=== PATIENT | female | born 1945 | race Caucasian/White ===

== ENCOUNTER 2018-01-18 08:54 | Observation (INO) | END 2018-01-19 18:45 | disposition home or self-care (01) ==

== ENCOUNTER 2018-08-16 18:30 | Emergency (ER) | payer BC ==
[~2018-08-16] VITALS: Ht 154.9 cm; Wt 58.0 kg
[~2018-08-16 18:30] MED LIST: ADV25050 INHALATION; ASPI-831 PO; ATOR40TA68 PO; CARV6.2579 PO; CHOL100062 PO; FEXO180T13 PO; LEVO50TA7 PO; MONT10TA24 PO; OMEG-135 PO; SERT50TA6 PO; SOY1TABL2 PO
[2018-08-16 19:06] VITALS: Ht 154.9 cm; Wt 58.0 kg
--- NOTE | 2018-08-16 23:16 | ERD ---
ER Documentation Chief Complaint Chief Complaint DIZZINESS X 1 DAY HPI The patient is a 73-year-old female, presenting to the ER because of dizziness for 1 day, she feels as if the room is spinning, has similar symptoms previously, complains of cough and nasal congestion intermittently for 1 week, denies syncope, near syncope, seizure, facial pain, neck pain, chest pain, dyspnea, abdominal pain, vomiting with dysuria, diarrhea. She does not smoke, drinks socially, has increased stress in her life at this time. Medical history: Hypothyroidism, depression, asthma, anxiety, dyslipidemia, history of left bundle branch block, hypertension Past surgical history: Hysterectomy, appendectomy ROS All systems reviewed and are negative except as per history of present illness. Medications Home Meds Active Scripts Meclizine Hcl* (Antivert*) 12.5 Mg Tab, 25 MG PO Q6H PRN for DIZZINESS, #20 TAB Prov:LUCIO OLSEN MD 08/17/18 Aspirin (Aspirin) 81 Mg Chew, 81 MG PO DAILY, #30 TAB Prov:TRUMAN MELGOZA 01/19/18 Carvedilol* (Carvedilol*) 6.25 Mg Tablet, 6.25 MG PO BID, #60 TAB Prov:TRUMAN MELGOZA 01/19/18 Atorvastatin* (Atorvastatin*) 40 Mg Tablet, 40 MG PO QHS, #30 TAB Prov:TRUMAN MELGOZA 01/19/18 Reported Medications Soy Isofl/Blk Coh/Gr Tea/[place]erba ([employer] Caplet) 1 Each Tablet, 1 EACH PO DAILY, TAB 01/18/18 [place]-3 Fatty Acids/Fish Oil (Fish Oil 1,000 mg Capsule) 1 Each Capsule, 1 EACH PO DAILY, CAP 01/18/18 Cholecalciferol* (Vitamin D3*) 1,000 Unit Tablet, 1000 UNIT PO DAILY, TAB 01/18/18 Levothyroxine Sodium* (Levothyroxine Sodium*) 50 Mcg Tablet, 50 MCG PO BEFORE BREAKFAST, #30 TAB 01/18/18 Montelukast Sodium* (Montelukast Sodium*) 10 Mg Tablet, 10 MG PO QHS, #30 TAB 01/18/18 Sertraline Hcl* (Sertraline Hcl*) 50 Mg Tablet, 25 MG PO DAILY, #30 TAB 01/18/18 Fexofenadine Hcl* (Fexofenadine Hcl*) 180 Mg Tablet, 180 MG PO DAILY, #30 TAB 01/18/18 Salmeterol Xinaf/Fluticasone* (Advair*) 250-50 Diskus Inhaler, 1 INH INHALATION BID, #1 INHALER 01/18/18 Allergies Allergies: Coded Allergies: No Known Allergy (Unverified , 01/18/18) PMhx/Soc History of Surgery: Yes (hysterectomy, appendectomy, cataract surgery- left, left foot surgery) Anesthesia Reaction: No Hx Neurological Disorder: No Hx Respiratory Disorders: Yes (asthma) Hx Cardiac Disorders: Yes (HTN) Hx Psychiatric Problems: Yes (anxiety) Hx Miscellaneous Medical Probl: Yes (dyslipidemia) Hx Alcohol Use: Yes (occasional) Hx Substance Use: No Hx Tobacco Use: Yes Physical Exam Vitals Vital Signs Date Temp Pulse Resp B/P (MAP) Pulse Ox O2 O2 Flow FiO2 Time Delivery Rate 08/17/18 65 17 132/69 98 Room Air 00:46 (90) 08/16/18 98.7 71 18 154/75 97 19:06 (101) Physical Exam Const: No acute distress. Head: Atraumatic. Eyes: Normal Conjunctiva. ENT: Normal External Ears, Nose and Mouth. Bilateral tympanic membranes are within normal limit Neck: Full range of motion. No meningismus. Resp: Clear to auscultation bilaterally. Cardio: Regular rate and rhythm. Abd: Soft, non distended, normal bowel sounds, non tender. Skin: No petechiae or rashes. Back: No midline or flank tenderness. Ext: No cyanosis, or edema. Neur: Awake and alert. No focal deficit Psych: Anxious. Result Diagram: 08/16/18 2338 08/16/18 2338 Results 24 hrs Laboratory Tests Test 08/16/18 23:38 White Blood Count 6.2 10^3/ul Red Blood Count 4.16 10^6/ul Hemoglobin 13.1 g/dl Hematocrit 39.6 % Mean Corpuscular Volume 95.2 fl Mean Corpuscular Hemoglobin 31.5 pg Mean Corpuscular Hemoglobin Concent 33.1 g/dl Red Cell Distribution Width 13.0 % Platelet Count 246 10^3/UL Mean Platelet Volume 10.2 fl Immature Granulocytes % 0.300 % Neutrophils % 58.1 % Lymphocytes % 34.5 % Monocytes % 5.8 % Eosinophils % 1.0 % Basophils % 0.3 % Nucleated Red Blood Cells % 0.0 /100WBC Immature Granulocytes # 0.020 10^3/ul Neutrophils # 3.6 10^3/ul Lymphocytes # 2.2 10^3/ul Monocytes # 0.4 10^3/ul Eosinophils # 0.1 10^3/ul Basophils # 0.0 10^3/ul Nucleated Red Blood Cells # 0.0 10^3/ul Prothrombin Time 11.9 Sec Prothrombin Time Ratio 0.9 INR International Normalized Ratio 0.87 Activated Partial Thromboplast Time 29.1 Sec Sodium Level 138 mmol/L Potassium Level 3.9 mmol/L Chloride Level 100 mmol/L Carbon Dioxide Level 27 mmol/L Anion Gap 11 Blood Urea Nitrogen 19 mg/dl Creatinine 0.46 mg/dl Est Glomerular Filtrat Rate mL/min mL/min Glucose Level 109 mg/dl Calcium Level 10.0 mg/dl Troponin I < 0.012 ng/ml Current Medications Medications Dose Sig/[place] Start Time Status Last (Trade) Ordered Route PRN Stop Time Admin Dose Reason Admin Alprazolam 0.25 mg ONCE ONCE 08/16/18 DC 08/16/18 (Xanax) PO 23:30 23:34 08/16/18 23:31 Meclizine 25 mg ONCE ONCE 08/16/18 DC 08/16/18 HCl PO 23:30 23:35 (Antivert) 08/16/18 23:31 Procedures/MDM EKG: Read by emergency physician Rate/Rhythm: Normal Sinus Rhythm 74 beats/min QRS, ST, T-waves: No ST elevation, no T inversion, sinus arrhythmia, left bundle branch block Impression: Abnormal EKG [place] [id number] Radiology Main Line: [phone] DIAGNOSTIC IMAGING REPORT Patient: MAXIMO RILEY : 1945 Age: 73 Sex: F MR #: [id number] DOS: 08/16/182326 Ordering MD: LUCIO OLSEN MD Location: E/R Room/Bed: PROCEDURE: CT Brain without contrast. CLINICAL INDICATION: Headache. TECHNIQUE: A CT of the brain was performed on a [employer] CT scanner ut ilizing axial imaging from the skull base through the vertex without IV contrast. Multiplanar reformatted images were made. Images were reviewed on a PACS workstation. The CTDIvol is 38.3 mGy and the DLP is 634.2 mGycm. DICOM images are available. One or more of the following dose reduction techniques were utilized: 1.) Automated exposure control 2.) Adjustment of the mA +/- kV according to patient's size 3.) Use of iterative reconstruction technique. COMPARISON: None FINDINGS: No acute intracranial hemorrhage, extra-axial fluid collection, mass effect nor midline shift. No evidence of acute large territory transcortical infarct. Scattered and confluent hypoattenuating foci involving the periventricular, deep and subcortical white matter of bilateral cerebral hemispheres and the raquel, nonspecific but most likely reflecting chronic small vessel ischemia mildly advanced for age. Ventricles and sulci are age appropriate. Basal cisterns are patent and symmetric. Intracranial atherosclerotic calcifications. Left frontal sinus is underdeveloped. Visualized paranasal sinuses and mastoid air cells are essentially clear. Slight rightward nasal septal deviation. Partially visualized intraorbital soft tissues appear grossly normal. No depressed calvarial fracture. IMPRESSION: 1. No acute intracranial hemorrhage nor mass effect. 2. Mild presumed chronic small vessel ischemic changes. MRI brain has improved sensitivity for acute infarct or subtle lesion. RPTAT: HSAN Physician Rosaline Date Time Electronically viewed and signed by Physician Rosaline on 08/17/2018 00:51 xN/ CC: LUCIO OLSEN MD [id number] MEDICAL MAKING DECISION: The patient is a 73-year-old female, presenting with acute dizziness most likely due to acute anxiety and acute benign positional vertigo. She was treated with Xanax 0.25 mg p.o. for acute anxiety and Antivert 25 mg p.o. for acute dizziness with good response, is stable for outpatient follow-up The differential diagnoses considered include but are not limited to central causes such as cerebellar infarct, cerebellar hemorrhage, cerebellar tumor, acoustic neuroma, peripheral causes such as benign positional vertigo, labyrinthitis, medication, Meniere's disease. Departure Diagnosis: Primary Impression: Dizziness Additional Impression: Anxiety Condition: Good Comments She was discharged with Antivert I discussed the findings with the patient. I advised the patient to follow-up with the primary physician in about 2-3 days, sooner if needed and return if any concern. Disclaimer: Inadvertent spelling and grammatical errors are likely due to EHR/di ctation software use and do not reflect on the overall quality of patient care. Also, please note that the electronic time recorded on this note does not necessarily reflect the actual time of the patient encounter. LUCIO OLSEN MD Aug 16, 2018 23:16
[2018-08-16] MEDS ORDERED: ALPRAZOLAM 0.25 MG TAB PO ONE (23:30)
[2018-08-16] MEDS ORDERED: MECLIZINE 12.5 MG TAB PO ONE (23:30)
[2018-08-17] MEDS ORDERED: MECL12.574 PO (02:05)
[2018-08-17 02:13] VITALS: BP 167/82; PULSE 64; RESP 16
== END 2018-08-17 02:18 | disposition home or self-care (01) ==
LOC: E/R 18:30
DX: R42 Dizziness and giddiness (principal); R40.2352 Coma scale, best motor response, localizes pain, at arrival to emergency department; R40.2252 Coma scale, best verbal response, oriented, at arrival to emergency department; R40.2142 Coma scale, eyes open, spontaneous, at arrival to emergency department; I10 Essential (primary) hypertension; J45.909 Unspecified asthma, uncomplicated; F41.9 Anxiety disorder, unspecified; E03.9 Hypothyroidism, unspecified; R07.9 Chest pain, unspecified; Z79.82 Long term (current) use of aspirin; Z87.891 Personal history of nicotine dependence
CPT/HCPCS: 36415; 70450; 80048; 84484; 85025; 85610; 85730; 93005